=== PATIENT | male | born 1985 | race Caucasian/White ===

== ENCOUNTER 2016-12-13 15:12 | Emergency (ER) | payer BC, OTHER ==
[2016-12-13 15:29] VITALS: BP 149/75; TEMP 98.5; O2SAT 96
--- NOTE | 2016-12-13 15:29 | ED.PDOC ---
History of Present Illness - General Chief Complaint: Skin/Abrasion/Tear Stated Complaint: swelling left foot Time Seen by Provider: 12/13/16 15:24 Source: patient Exam Limitations: no limitations - History of Present Illness Initial Comments: Marcos Garrido 31 y/o male stated that he had tattoo done on his left leg/foot one week ago and noted redness /swelling the last 3 days getting worse.No fever slight pain on moving foot. Occurred: other - 3 days Pain - Lower Extremity: moderate: Left Foot Method of Injury: other - had tattoo done one week ago Improving Factors: nothing Worsening Factors: nothing Associated Symptoms: none Allergies/Adverse Reactions: Allergies Lidocaine Allergy (Verified 12/13/16 15:29) Home Medications: Ambulatory Orders Oxhcvmxsmjacn-Sxjl-Vyfpgtyvzr [Fioricet] 1 ea PO PRN 12/13/16 Citalopram Hydrobromide 40 mg PO DAILY 12/13/16 Clindamycin HCl 300 mg PO BID #30 cap 12/13/16 Eletriptan Hydrobromide [Relpax] 40 mg PO PRN 12/13/16 Verapamil HCl 80 mg PO TID 12/13/16 Review of Systems - Review of Systems Constitutional: States: no symptoms reported EENTM: States: no symptoms reported Respiratory: States: no symptoms reported Cardiology: States: no symptoms reported Gastrointestinal/Abdominal: States: no symptoms reported Genitourinary: States: no symptoms reported Musculoskeletal: States: see HPI Skin: States: see HPI Neurological: States: no symptoms reported Endocrine: States: no symptoms reported Hematologic/Lymphatic: States: no symptoms reported Past Medical History (General) - Patient Medical History Hx Asthma: No Hx Hypertension: No Hx Diabetes: No Surgical History: other - lasik eye procedure - Vaccination History Hx Tetanus, Diphtheria Vaccination: No - Social History Hx Tobacco Use: No Hx Alcohol Use: No Family Medical History - Family History Father Living Status: Hx Family Diabetes: Yes Physical Exam - Physical Exam General Appearance: Alert, Comfortable, No apparent distress Eyes, Ears, Nose, Throat: PERRL/EOMI, normal ENT inspection Neck: non-tender, full range of motion, supple Cardiovascular/Respiratory: regular rate, rhythm, no M/R/G, no JVD Gastrointestinal/Abdominal: non-tender, no organomegaly Back: normal inspection, no CVA tenderness, no vertebral tenderness Thigh/Hip: normal inspection, no evidence of injury Leg: normal inspection, normal ROM, other - tattoo noted Knee: normal inspection, no evidence of injury Ankle: normal inspection, no evidence of injury Foot: soft tissue tenderness - left foot, swelling - left foot, other - erythema and slight tenderness,no calf tenderness Neuro/Tendon: normal sensation Mental Status: alert, oriented x 3 Skin: normal color, warm/dry Progress - Progress Progress: 12/13/16 15:38 Vital Signs - 8 hr 12/13/16 15:25 Temperature 98.5 F Pulse Rate [ 89 Left Brachial] Respiratory 16 Rate Blood Pressure 149/75 [Left Arm] O2 Sat by Pulse 96 Oximetry - Results/Orders Results/Orders: 12/13/16 15:33 CBC (AUTOMATED) W/AUTO DIFF Stat 12/13/16 16:10 Partice Wrap/Bandage .ONCE Laboratory Results WBC 5.6 K/mm3 (4.8-10.8) 12/13/16 15:48 RBC 4.87 M/mm3 (4.70-6.10) 12/13/16 15:48 Hgb 14.4 gm/dL (14.0-18.0) 12/13/16 15:48 Hct 42.7 % (42.0-52.0) 12/13/16 15:48 MCV 87.6 fl (80.0-94.0) 12/13/16 15:48 MCH 29.6 pg (27.0-31.0) 12/13/16 15:48 MCHC 33.8 g/dL (33.0-37.0) 12/13/16 15:48 RDW 14.1 % (11.5-14.5) 12/13/16 15:48 Plt Count 199 K/mm3 (130-400) 12/13/16 15:48 MPV 7.0 fl (7.40-10.4) L 12/13/16 15:48 Absolute Neuts (auto) 3.80 K/uL (1.8-6.8) 12/13/16 15:48 Absolute Lymphs (auto) 1.20 K/uL (1.0-3.4) 12/13/16 15:48 Absolute Monos (auto) 0.30 K/uL (0.2-0.8) 12/13/16 15:48 Absolute Eos (auto) 0.20 K/uL (0.0-0.4) 12/13/16 15:48 Absolute Basos (auto) 0.00 K/uL (0.0-0.1) 12/13/16 15:48 Neutrophils % 67.3 % (42.0-78.0) 12/13/16 15:48 Lymphocytes % 21.6 % (20.0-50.0) 12/13/16 15:48 Monocytes % 6.2 % (2.0-9.0) 12/13/16 15:48 Eosinophils % 4.2 % (1.0-5.0) 12/13/16 15:48 Basophils % 0.7 % (0.0-2.0) 12/13/16 15:48 Departure - Departure Clinical Impression: Cellulitis Qualifiers: Site of cellulitis of extremity: lower extremity Laterality: left Time of Disposition: 16:05 Disposition: Discharge to Home or Self Care Condition: Good Instructions: DI for Cellulitis -- Adult, Cellulitis Referrals: Dereje Mcgregor MD [Active Staff] - 1-2 Weeks Prescriptions: Clindamycin HCl 300 mg PO BID #30 cap Home Medications: Ambulatory Orders Mvzhgxzbktrsb-Hres-Khsicxnyfh [Fioricet] 1 ea PO PRN 12/13/16 Citalopram Hydrobromide 40 mg PO DAILY 12/13/16 Clindamycin HCl 300 mg PO BID #30 cap 12/13/16 Eletriptan Hydrobromide [Relpax] 40 mg PO PRN 12/13/16 Verapamil HCl 80 mg PO TID 12/13/16 Additional Instructions: Return to emergency room as needed;Elevate left leg 20 degrees at bedtime until better;Re-check with primary md 12/15/2016 as needed
[2016-12-13] MEDS ORDERED: TETANUS,DIPHTHERIA,PERTUSSIS 1 EA SYG IM ONE (15:31)
[2016-12-13] MEDS ORDERED: CLINDAMYCIN HCL CAP 150 MG CAP PO ONE (15:33)
[2016-12-13] MEDS ORDERED: CLINDAMYCIN PHOSPHATE 150 MG/ML VIAL IM ONE (15:33)
== END 2016-12-13 16:17 | disposition home or self-care (01) ==
LOC: ER 15:12
DX: L03.116 Cellulitis of left lower limb (principal); Z88.4 Allergy status to anesthetic agent; Z79.899 Other long term (current) drug therapy; Z23 Encounter for immunization
CPT/HCPCS: 36415; 85025; J3490

== ENCOUNTER → 2018-04-03 | Outpatient (CLI) | payer OTHER | LOC: GMAH 10:46 | PROVIDERS: ATTEND Family Medicine | DX: I10 Essential (primary) hypertension (principal) ==